=== PATIENT | female | born 1995 | race Caucasian/White ===

== ENCOUNTER → 2024-08-25 09:00 | Outpatient (REF) | payer OTHER, SELFPAY ==
--- NOTE | 2024-08-22 12:13 | PN.DIAED06 ---
Meal Plan - Gestational
- Breakfast
Gestational Diabetes Meal Plan Name: 1800 calories
Breakfast - Total Carbohydrate (grams): 30 (1 carb = 15 grams)
Breakfast - Starch Carbohydrate: 1 (carbs: starch, milk, fruit)
Breakfast - Fruit Carbohydrate: 0 (no fruit or juice before noon)
Breakfast - Milk Carbohydrate: 1
Breakfast - Nonstarchy Vegetables: Yes
Breakfast - Meat/Protein: 1 (1 serving protein = 7 grams)
Breakfast - Fat: 2 (1 serving fat = 5 grams)
- Morning Snack
Morning Snack - Total Carbohydrate (grams): 30
Morning Snack - Starch Carbohydrate: 1
Morning Snack - Fruit Carbohydrate: 0 (no fruit or juice before noon)
Morning Snack - Milk Carbohydrate: 1
Morning Snack - Nonstarchy Vegetables: Yes
Morning Snack - Meat/Protein: 0.5
Morning Snack - Fat: 0
- Lunch
Lunch - Total Carbohydrate (grams): 45
Lunch - Starch Carbohydrate: 2
Lunch - Fruit Carbohydrate: 1
Lunch - Milk Carbohydrate: 0
Lunch - Nonstarchy Vegetables: Yes
Lunch - Meat/Protein: 2
Lunch - Fat: 1
- Afternoon Snack
Afternoon Snack - Total Carbohydrate (grams): 30
Afternoon Snack - Starch Carbohydrate: 1
Afternoon Snack - Fruit Carbohydrate: 1
Afternoon Snack - Milk Carbohydrate: 0
Afternoon Snack - Nonstarchy Vegetables: Yes
Afternoon Snack - Meat/Protein: 1
Afternoon Snack - Fat: 0
- Dinner
Dinner - Total Carbohydrate (grams): 45
Dinner - Starch Carbohydrate: 2
Dinner - Fruit Carbohydrate: 0
Dinner - Milk Carbohydrate: 1
Dinner - Nonstarchy Vegetables: Yes
Dinner - Meat/Protein: 2
Dinner - Fat: 2
- Evening Snack
Evening Snack - Total Carbohydrate (grams): 30
Evening Snack - Starch Carbohydrate: 1
Evening Snack - Fruit Carbohydrate: 0
Evening Snack - Milk Carbohydrate: 1
Evening Snack - Nonstarchy Vegetables: Yes
Evening Snack - Meat/Protein: 1
Evening Snack - Fat: 1
--- NOTE | 2024-08-25 14:51 | PN.DE ---
Diabetes Education
- -
08/25/2024
Met with Penelope today for medical nutrition therapy. G1, P0, currently at 26 weeks of gestation, with an MARIFER of 11/27/2024
Explained glucose metabolism in body and what occurs during to cause increase blood sugar. Discussed importance of keeping BS well controlled to avoid complications to the baby during and after (macrosomia, hypoglycemia). Discussed
macronutrients, provided with 1800 gordon GDM meal plan. Advised low saturated fat meats and dairy, minimize sweets and follow meal plan for portions and proper ratio of carbohydrates, protein, and fats.
Discussed the benefits of physical activity in lowering glucose. She currently does not exercise but verbalized understanding.
Penelope presented to the appointment with a new OneTouch Verio glucometer, test strips, and lancets. Reviewed proper testing technique, testing sites and testing pattern. She is aware to test FBS and 2 hr pp each meal. Expected results for FBS <90
mg/dl and 2 hr pp <120 mg/dl. Noted for blood sugar of 105 mg/dL 2 hr after breakfast this morning. Log sheet provided for her to record results, she will send a 4-day meal log with all her FBG and 2hr Post prandial glucose numbers to this office
for review. In addition, she will send all her glucose readings [facility].
She was encouraged to reach out should she require insulin.
== END ==
LOC: DES 09:00
PROVIDERS: ATTENDING PHYSICIAN Student in an Organized Health Care Education/Training Program
DX: O24.419 Gestational diabetes mellitus in pregnancy, unspecified control (principal)
CPT/HCPCS: 99078

== ENCOUNTER → 2024-09-05 10:37 | Outpatient (REF) | payer OTHER, SELFPAY | LOC: PNTC 10:37 | PROVIDERS: ATTENDING PHYSICIAN Student in an Organized Health Care Education/Training Program | DX: O24.419 Gestational diabetes mellitus in pregnancy, unspecified control (principal) | CPT/HCPCS: 76816 ==

== ENCOUNTER → 2024-10-03 10:27 | Outpatient (REF) | payer OTHER, SELFPAY | LOC: PNTC 10:27 | PROVIDERS: ATTENDING PHYSICIAN Obstetrics & Gynecology | DX: O24.419 Gestational diabetes mellitus in pregnancy, unspecified control (principal) | CPT/HCPCS: 76816 ==

== ENCOUNTER → 2024-11-01 12:20 | Outpatient (REF) | payer OTHER, SELFPAY | LOC: PNTC 12:20 | PROVIDERS: ATTENDING PHYSICIAN Obstetrics & Gynecology | DX: O24.410 Gestational diabetes mellitus in pregnancy, diet controlled (principal) | CPT/HCPCS: 76816 ==

== ENCOUNTER 2024-11-23 12:00 | Inpatient (IN) | payer OTHER, SELFPAY ==
[2024-11-23 12:17] VITALS: BP 157/86; BMI 33.8
[2024-11-23 13:11] LABS: Hematocrit 34.5 % (37.0-47.0); Hemoglobin 11.7 g/dL (12.0-16.0); Mean Corp Hgb Conc. 33.9 g/dL (33.0-37.0); Mean Corpuscular Volume 90.1 fL (81.0-99.0); Nucleated Red Blood Cells % 0 %; Platelet Count 181 10^3/uL (130-400); Red Cell Dist. Width 13.1 % (11.5-14.5)
[2024-11-23 13:23] LABS: ALT (SGPT) 16 U/L (0-35); AST (SGOT) 17 U/L (14-36); Albumin 3.7 g/dl (3.5-5.0); Alkaline Phosphatase 158 U/L (38-126); Blood Urea Nitrogen 12 mg/dl (7-17); Calcium 10.3 mg/dl (8.4-10.2); Carbon Dioxide 20 mmol/L (22-30); Chloride 108 mmol/L (98-107); Estimated Creatinine Clearance > 125 ml/min; Glucose 120 mg/dl (70-99); Potassium 4.2 mmol/L (3.5-5.1); Sodium 133 mmol/L (135-145); Total Protein 6.7 g/dl (6.3-8.2); eGFR > 60.00
[2024-11-23] MEDS: LR 1000 IV ×2 (13:39→14:16)
[2024-11-23] MEDS: TRANDATE 20 MG IV (13:53)
[2024-11-23] MEDS: MAGNESIUM SULFATE 100 IV (14:16)
[2024-11-23] MEDS: MAGNESIUM SULFATE 40 GRAM 1000 IV (14:47)
[2024-11-23] MEDS: CYTOTEC 25 MICROGRAM VAG (15:05)
[2024-11-23] MEDS: TYLENOL 1000 MG PO (15:11)
[2024-11-23 17:30] LABS: Glucose - Point of Care 100 mg/dl (70-99)
[2024-11-23] MEDS: PITOCIN 30 UNITS/NSS 500 ML IV (19:51)
[2024-11-23 21:35] LABS: Glucose - Point of Care 85 mg/dl (70-99)
[2024-11-24] MEDS: TYLENOL 1000 MG PO ×2 (00:04→07:25)
[2024-11-24] MEDS: STADOL 1 MG IV (00:06)
[2024-11-24] MEDS: LR 1000 IV ×2 (00:20→16:19)
[2024-11-24 01:37] LABS: Glucose - Point of Care 90 mg/dl (70-99)
[2024-11-24 05:30] LABS: Glucose - Point of Care 102 mg/dl (70-99)
[2024-11-24] MEDS: TUMS CHEWABLE TABLET 400 MG PO (06:42)
[2024-11-24 09:26] LABS: Glucose - Point of Care 102 mg/dl (70-99)
[2024-11-24] MEDS: MAGNESIUM SULFATE 40 GRAM 1000 IV (10:17)
[2024-11-24 12:03] LABS: Platelet Count 170 10^3/uL (130-400)
[2024-11-24] MEDS: SUBLIMAZE 100 MCG EPIDURAL (12:27)
[2024-11-24] MEDS: FENTANYL/BUPIVACAINE 100 EPIDURAL ×2 (12:27→18:59)
[2024-11-24 12:55] LABS: Glucose - Point of Care 119 mg/dl (70-99)
[2024-11-24 13:00] LABS: Magnesium 5.9 mg/dl (1.6-2.3)
[2024-11-24 15:32] LABS: Glucose - Point of Care 104 mg/dl (70-99)
[2024-11-24] MEDS: LR IV (16:16)
[2024-11-24 17:29] LABS: Glucose - Point of Care 94 mg/dl (70-99)
[2024-11-24 19:30] LABS: Glucose - Point of Care 101 mg/dl (70-99)
[2024-11-24] MEDS: PITOCIN 30 UNITS/NSS 500 ML IV ×2 (19:56→22:42)
[2024-11-24 20:13] LABS: B.E. Cord ABG -4.7 mMOL/L; Cord ABG Comment CORD BLOOD; HCO3 Cord ABG 20.4 mmol/L; O2 Saturation % Cord ABG 56.0 %; PCO2 Cord ABG 37 mmHg; PO2 Cord ABG 26 mmHg; pH Cord ABG 7.35
[2024-11-24 20:16] LABS: B.E. Cord ABG -5.2 mMOL/L; HCO3 Cord ABG 22.4 mmol/L; O2 Saturation % Cord ABG 26.4 %; PCO2 Cord ABG 51 mmHg; PO2 Cord ABG 16 mmHg; pH Cord ABG 7.25
[2024-11-25] MEDS: TYLENOL 650 MG PO ×3 (00:18→16:28)
[2024-11-25 06:12] LABS: Hematocrit 31.4 % (37.0-47.0); Hemoglobin 10.6 g/dL (12.0-16.0)
[2024-11-25] MEDS: MAGNESIUM SULFATE 40 GRAM 1000 IV (06:24)
[2024-11-25] MEDS: LR 1000 IV (06:26)
[2024-11-25] MEDS: COLACE 100 MG PO ×2 (08:30→19:22)
[2024-11-25] MEDS: PRENATAL PLUS 1 TABLET PO (08:30)
[2024-11-25 13:11] LABS: Syphilis/T. pallidum Ab Reflex Negative (Negative)
[2024-11-25] MEDS: MOTRIN 600 MG PO (19:22)
[2024-11-26] MEDS: TYLENOL 650 MG PO ×3 (02:35→14:00)
[2024-11-26] MEDS: MOTRIN 600 MG PO ×3 (02:35→14:00)
[2024-11-26] MEDS: COLACE 100 MG PO (08:14)
[2024-11-26] MEDS: PRENATAL PLUS 1 TABLET PO (08:15)
== END 2024-11-26 18:30 | disposition home or self-care (01) | DRG 807 ==
LOC: LDRP 12:00
PROVIDERS: Obstetrics & Gynecology; Specialist; ADMITTING PHYSICIAN Obstetrics & Gynecology
PROC: 3E033VJ Introduction of Other Hormone into Peripheral Vein, Percutaneous Approach (ICD-10-PCS; 2024-11-23)
PROC: 0U7C7DJ Dilation of Cervix with Intraluminal Device, Temporary, Via Natural or Artificial Opening (ICD-10-PCS; 2024-11-23)
PROC: 3E0P7VZ Introduction of Hormone into Female Reproductive, Via Natural or Artificial Opening (ICD-10-PCS; 2024-11-23)
PROC: 0HQ9XZZ Repair Perineum Skin, External Approach (ICD-10-PCS; 2024-11-25)
PROC: 10E0XZZ Delivery of Products of Conception, External Approach (ICD-10-PCS; 2024-11-25)
DX: O14.14 Severe pre-eclampsia complicating childbirth (principal); Z37.0 Single live birth; Z3A.39 39 weeks gestation of pregnancy; O24.420 Gestational diabetes mellitus in childbirth, diet controlled; O99.284 Endocrine, nutritional and metabolic diseases complicating childbirth; E28.2 Polycystic ovarian syndrome; O70.0 First degree perineal laceration during delivery
CPT/HCPCS: 36415; 80053; 82570; 82803; 82962; 83735; 84156; 85014; 85018; 85025; 85049; 86780; 86850; 86900; 86901; 88307